=== PATIENT | female | born 1985 | race Caucasian/White ===

== ENCOUNTER 2017-10-15 00:25 | Emergency (ER) | payer OTHER ==
[~2017-10-15] VITALS: Ht 160 cm; Wt 113.6 kg
[~2017-10-15 00:25] MED LIST: ATARAX,VISTARIL25 MG PO; LEVOTHYROXINE150 MCG PO; METFORMIN HCL500 MG PO; MONONESSA1 EACH PO; Motrin PO; NATALCARE RX1 TABLE1 PO; NOHOMEMEDS; PREDNISONE20 MG PO; VITAMIN D5000 UNIT PO
[2017-10-15] MEDS ORDERED: LEVAQUIN500 MG PO (01:32)
[2017-10-15 01:43] VITALS: BP 128/77
== END 2017-10-15 01:44 | disposition home or self-care (01) ==
LOC: EME 00:25
PROVIDERS: Physician Assistant
DX: J18.9 Pneumonia, unspecified organism (principal); E03.9 Hypothyroidism, unspecified
CPT/HCPCS: 71020; 87502; 87651 90; 99281; 99284